=== PATIENT | male | born 1955 | race Caucasian/White ===

== ENCOUNTER → 2019-12-07 10:12 | Outpatient (BNVA) | payer BC, SELFPAY | PROVIDERS: Family Provider Nurse Practitioner; PCP Nurse Practitioner; Visit Provider Urology | DX: C67.0 Malignant neoplasm of trigone of bladder (principal) | CPT/HCPCS: 81001 ==

== ENCOUNTER → 2020-03-07 00:01 | Outpatient (BNVA) | payer BC, SELFPAY | PROVIDERS: Family Provider Nurse Practitioner; PCP Nurse Practitioner; Visit Provider Urology | DX: C67.9 Malignant neoplasm of bladder, unspecified (principal); R31.0 Gross hematuria; C67.0 Malignant neoplasm of trigone of bladder | CPT/HCPCS: 81001; 88112 ==

== ENCOUNTER → 2020-06-27 08:22 | Outpatient (BNVA) | payer BC, SELFPAY | PROVIDERS: Family Provider Nurse Practitioner; PCP Nurse Practitioner; Visit Provider Urology | DX: C67.0 Malignant neoplasm of trigone of bladder (principal) | CPT/HCPCS: 81001 ==

== ENCOUNTER → 2020-08-04 10:54 | Outpatient (BNVA) | payer BC, SELFPAY | PROVIDERS: Family Provider Nurse Practitioner; PCP Nurse Practitioner; Visit Provider Urology | DX: C67.0 Malignant neoplasm of trigone of bladder (principal) | CPT/HCPCS: 81001 ==

== ENCOUNTER → 2020-08-12 10:00 | Outpatient (BNVA) | payer BC, SELFPAY | PROVIDERS: PCP Nurse Practitioner; Visit Provider Urology | DX: Z11.59 Encounter for screening for other viral diseases (principal); C67.0 Malignant neoplasm of trigone of bladder | CPT/HCPCS: 87635 ==

== ENCOUNTER 2020-08-15 10:24 | Day surgery (SDC) | payer BC, SELFPAY ==
[2020-08-12 11:36] VITALS: BMI 23.6
--- NOTE | 2020-08-12 11:47 | ECG_ITS ---
[facility] Test Date: 2020-08-12 Pat Name: Christopher Smith Department: Room: Gender: Male Construction Superintendent: : 1955 Requested By: Ilene Rojas Order Number: [id number] Alicia MD: Amie Sarkar M.D. Measurements Intervals [place] Rate: 59 P: 70 MD: 144 QRS: 46 QRSD: 100 T: 65 QT: 398 QTc: 396 Interpretive Statements SINUS BRADYCARDIA NONSPECIFIC T-WAVE ABNORMALITY Compared to ECG 09/30/2019 12:43:41 T-wave abnormality now present Electronically Signed On 08-12-2020 20:40:14 CDT by Amie Sarkar M.D. [email or web address] marion general hospitalSustainable Energy & Agriculture Technology/store/[id number]
--- NOTE | 2020-08-12 12:05 | P.ANESASSM_ITS ---
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 Proposed Procedure: Operation Date: 08/15/20 12:00 Proposed Procedures p Cystoscopy 01815 C67.0(Not Applicable) - Tyler Dominguez MD s Transurethral Resection Bladder Tumor(Not Applicable) - Tyler Dominguez MD Familial anesthetic complications: None Social: Social History: No alcohol and No tobacco Exam: Pre-Anes Outpt Exam: alert, oriented x 3, clear to auscultation bilaterally and regular rate & rhythm Airway: Cervical ROM: WNL MP: 2 Dentition: False CV/HEM: CV/HEM: CAD (stent in heart on plavix), HTN and [place] (2016) Comments: slow HR Metabolic: Metabolic: Hyperlipidemia Anesthetic Plan: ASA status: 2 Anesthesia: General Risk of > 500 ml blood loss (7ml/kg in children): No PFSH Anesthesia PFSH: Medical History Arteriosclerosis Bradycardia Cancer of trigone of urinary bladder History of [place] (myocardial infarction) Hyperlipidemia LV dysfunction Surgical History History of heart artery stent History of transurethral destruction of bladder lesion Family History Mother , at age 81 Dementia Father , at age 69 Esophageal cancer Social History Smoking and tobacco status: former smoker Alcohol intake: never Marital status: Single Current occupational status: employed History of recent travel: No Data Anesthesia CBC & Chem 7: 08/12/20 11:56 08/12/20 11:56 Cardiac Studies: No Data to Display
[2020-08-12 12:08] LABS: Basophils # 0.1 10^3/uL (0.0-0.1); Basophils % 0.8 %; Eosinophils # 0.2 10^3/uL (0.0-0.8); Eosinophils % 2.6 %; Hematocrit 45.8 % (42.0-52.0); Hemoglobin 15.3 g/dL (11.7-16.6); Lymphocytes # 1.6 10^3/uL (0.8-4.8); Lymphocytes % 22.6 %; Mean Corpuscular HGB Conc 33.4 g/dL (30.0-36.0); Mean Corpuscular Volume 89.8 fL (80-94); Mean Platelet Volume 9.7 fL (7.4-10.4); Monocytes # 0.7 10^3/uL (0.2-0.9); Monocytes % 9.2 %; Neutrophils # 4.67 10^3/uL (1.8-7.7); Neutrophils % 64.5 %; Nucleated Red Blood Cells % 0 %; Platelet Count 195 10^3/cmm (130-400); Red Cell Distribution Width 12.1 % (12.1-15.1); White Blood Count 7.3 10^3/uL (4.0-10.0)
[2020-08-12 12:26] LABS: Anion Gap 12.7 (5-19); Blood Urea Nitrogen 8 mg/dL (8-23); Calcium 9.5 mg/dL (8.5-10.5); Carbon Dioxide 28 mmol/L (22-29); Chloride 102 mmol/L (98-107); Glomerular Filtration Rate 113.9 mL/min (90-130); Glucose 116 mg/dL (65-115); Osmolality Calculated 287 mOsm/kg (285-295); Potassium 3.7 mmol/L (3.5-5.1); Sodium 139 mmol/L (136-145)
[2020-08-15] VITALS (7 sets, daily range): BP systolic 138–177; BP diastolic 80–99; PULSE 51–64; RESP 14–18; TEMP 36.3–36.6; O2SAT 97–100
[2020-08-15] MEDS: sodium chloride 0.9% 1,000 ML 30 ML IV (11:00)
[2020-08-15] MEDS: levofloxacin-dextrose 5 % 500 MG/100 ML PREMIX 100 MG IV (12:07)
--- NOTE | 2020-08-15 12:08 | P.HPUD_ITS ---
Surgery/Procedure H&P Update DATE OF PROCEDURE: August 15, 2020 DATE H&P PERFORMED: 08/04/20 H&P UPDATE INFORMATION: I have reviewed H&P completed within last 30 days, I have examined patient prior to procedure, No changes to prior documentation and H&P is in [facility] EMR on date indicated CHANGES TO PREVIOUS DOCUMENTATION: Doing well. Reviewed again with the patient. He is ready to proceed. 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
[2020-08-15] MEDS: lidocaine 2% Urojet 20 mL TOPICAL (12:28)
--- NOTE | 2020-08-15 12:55 | PM.OP ---
Operative Report Date of procedure: August 15, 2020 Pre-op Diagnosis: Suspicious bladder mucosa in patient with TCCA Post-op diagnosis: same Procedure Done: 1. Cystoscopy, transurethral resection/biopsy/fulguration suspicious bladder mucosa (>2.5 cm) Implants: Campbell catheter Pathology: 4 separate areas sampled and sent labeled appropriately Surgeon: Alberto Anesthesia: General Estimated blood loss: Less than 10 cc Urine output: Not measured Complications: None Findings: Clinic cystoscopy findings confirmed. 4 separate areas sampled. 1. Dome 2. Right lateral wall 3. Right anterolateral wall 4. Trigone Condition: stable Disposition: PACU Brief History: Christopher is a very pleasant 65-year-old white male with a history of TCC of the bladder. Recent surveillance cystoscopy showed areas of suspicion in the bladder for possible CIS. Cytology showed malignant appearing cells and he was scheduled for biopsy/fulguration. He delayed the procedure due to some family requirements. Procedure: After routine preoperative evaluation examination and obtaining of informed consent he was taken to the operating suite on 08/15/2020 where general anesthesia was administered without difficulty after appropriate timeout was performed, SCDs confirmed to be functioning, preoperative antibiotics administered, beta-eve protocol confirmed. Prepped and draped in the usual sterile fashion in dorsolithotomy position pain careful attention to avoiding pressure points. 21 Northern Irish cystoscope with 30 degree lens was introduced into urethral meatus and advanced into the bladder under videoscopy. The bladder was examined with 30 and 70 degrees lenses. The areas seen in the clinic that were suspicious were confirmed. The above 4 areas were sampled with cold cup biopsy forceps and then the suspicious mucosa fulgurated completely with the largest being about 2.5 to 3 cm in size. Samples were sent appropriately labeled. Base was fulgurated with Bugbee cautery probe for complete hemostasis. Bladder was drained with an 18 Northern Irish Campbell catheter. Urine was clear. Tolerated procedure well without complications. PLANS: 1. Follow-up on Saturday for voiding trial 2. Call for concerns or questions. Encouraged restricted activity and large fluid intake to reduce the risk of bleeding and clot formation.
--- NOTE | 2020-08-15 13:27 | PC.NURSE ---
patient arrived on unit.
--- NOTE | 2020-08-15 14:04 | PC.NURSE ---
patient taken back to OR for discharge
--- NOTE | 2020-08-15 15:36 | ANE.PACU2 ---
Inpatient post-anesthesia follow up: Airway intact: Yes Vital signs: Temperature 97.8 F Pulse Rate 51 Respiratory Rate 18 Blood Pressure 177/93 Pulse Oximetry 97 Oxygen Delivery Me thod Room Air Oxygen Flow Rate 8 Fraction of Inspir ed Oxygen Hydration adequate: Yes Nausea and vomiting: No Pain level: 1
== END 2020-08-15 14:55 | disposition home or self-care (01) ==
PROVIDERS: Anesthesiology; PCP Nurse Practitioner; Visit Provider Urology
PROC: 0TJB8ZZ Inspection of Bladder, Via Natural or Artificial Opening Endoscopic (ICD-10-PCS; CPT 52000; principal; 2020-08-15 12:00)
PROC: 0TBB8ZZ Excision of Bladder, Via Natural or Artificial Opening Endoscopic (ICD-10-PCS; CPT 52240; 2020-08-15 12:00)
DX: C67.0 Malignant neoplasm of trigone of bladder (principal); I25.10 Atherosclerotic heart disease of native coronary artery without angina pectoris; Z95.5 Presence of coronary angioplasty implant and graft; E78.5 Hyperlipidemia, unspecified; I10 Essential (primary) hypertension; I25.2 Old myocardial infarction; Z87.891 Personal history of nicotine dependence
CPT/HCPCS: 52240; 12345; 36415; 80048; 85025; 88305; 93005; 96365; J1956; J2405; J2704; J2710; J3010; J3490; J7030

== ENCOUNTER 2020-09-13 20:24 | Emergency (ER) | payer BC, SELFPAY ==
--- NOTE | 2020-09-13 20:26 | XRR_ITS ---
PROCEDURE INFORMATION: Exam: XR Chest, 1 View Exam date and time: 09/13/2020 9:17 PM Age: 65 years old Clinical indication: Chest pain; On breathing; Prior surgery; Surgery type: Stents; Additional info: SOB TECHNIQUE: Imaging protocol: XR of the chest Views: 1 view. COMPARISON: CR Chest 1 [place] [id number] 03/28/2016 8:30 PM FINDINGS: Lungs: Patchy bilateral mid to lower lung field airspace opacities suggestive of an infectious process. Pleural space: Unremarkable. No pleural effusion. No pneumothorax. Heart/Mediastinum: Unremarkable. No cardiomegaly. Bones/joints: Unremarkable. XR/XR chest 1V portable [id number] IMPRESSION: Patchy bilateral mid to lower lung field airspace opacities suggestive of an infectious process.
--- NOTE | 2020-09-13 20:26 | ECG_ITS ---
[facility] Test Date: 2020-09-13 Pat Name: Christopher Smith Department: Room: Gender: Male Geographic Information System Analyst: : 1955 Requested By: Kalyn Arrington Order Number: [id number] Alicia MD: Neetu Hunter M.D. Measurements Intervals [place] Rate: 80 P: 59 AR: 144 QRS: 9 QRSD: 102 T: 56 QT: 383 QTc: 444 Interpretive Statements SINUS RHYTHM Compared to ECG 08/12/2020 12:02:20 Sinus bradycardia no longer present T-wave abnormality no longer present Electronically Signed On 09-14-2020 19:23:51 BRIM STITCHER by Neetu Hunetr M.D. [id number] f
[2020-09-13 20:34] VITALS: BP 115/73; PULSE 93; RESP 20; TEMP 36.9; O2SAT 95; BMI 23.3
[2020-09-13 20:45] VITALS: BP 122/82; PULSE 86; RESP 18; O2SAT 93
--- NOTE | 2020-09-13 20:48 | ED_ITS ---
HPI - URI/Sore Throat General: Chief Complaint: Upper Respiratory Infection Stated Complaint: Fever, Cough,nausea, ribs hurting Time Seen by Provider: 09/13/20 20:43 History of Present Illness: HPI Narrative: Patient complains of fever chills cough nonproductive over the last few days thinks he might have pneumonia as some pain down her left chest when he takes in a deep breath. Does have some sinus pain does have a lot of drainage also. MD elicited complaint: fever, cough, sore throat, nasal congestion and sinus pain Pertinent past history: other Onset (ago): day(s) Consistency: constant and progressively worsening Severity: moderate Description of mucous: yellow Able to tolerate fluids by mouth: Yes Exacerbating factors: nothing Relieving factors: nothing Associated symptoms: Reports chills, congestion, cough, nasal congestion, sinus pain and sore throat; Deny abdominal pain, chest pain, headache(s), nausea or vomiting Treatments prior to arrival: ibuprofen Review of Systems Const: Reports: chills Eyes: Denies: change in vision or blurry vision ENMT: Reports: nasal congestion and sinus pain Card: Denies: chest pain or dyspnea on exertion Resp: Reports: non-productive cough and other (Chest pain with deep inspiration of left lower quadrant); Denies: dyspnea or productive cough GI: Denies: abdominal pain, nausea or vomiting : Denies: difficulty urinating Musc: Denies: extremity pain Skin/Breast: Denies: rash Neuro: Denies: headache(s) Psych: Denies: anxiety or depression Huey/Lymph: Denies: easy bruising PFSH ED PFSH: Medical History (Updated 09/13/20 @ 22:48 by PHYLLIS Hamm) Arteriosclerosis Bradycardia Cancer of trigone of urinary bladder History of [place] (myocardial infarction) Hyperlipidemia LV dysfunction Surgical History History of heart artery stent History of transurethral destruction of bladder lesion Family History Mother , at age 81 Dementia Father , at age 69 Esophageal cancer Social History Smoking and tobacco status: former smoker Alcohol intake: never Marital status: Single Current occupational status: employed History of recent travel: No Physical Exam Const: COMMON NORMALS: no acute distress, average body habitus and patient oriented x3 HENMT: COMMON NORMALS: normocephalic HEAD & SCALP: normal to inspection and normocephalic FACE & SINUS: sinus tenderness frontal and ethmoid Eye: COMMON NORMALS: conjunctivae normal GENERAL EYE: appearance normal, both eyes and all related structures CONJUNCTIVA: Yes conjunctivae normal Neck/C-Spine: COMMON NORMALS: no JVD Chest: COMMONS NORMALS: normal inspection of the chest Resp: COMMON NORMALS: normal respiratory effort and clear to auscultation bilaterally AUSCULTATION: clear to auscultation bilaterally Cardio: COMMON NORMALS: no JVD, regular rate and regular rhythm RATE: regular rate RHYTHM: regular rhythm GI: COMMON NORMALS: Normal to inspection, nondistended, normoactive bowel sounds present Extremity: COMMON NORMALS: normal to inspection and full ROM Neuro: COMMON NORMALS: patient oriented x3 Course Vital Signs: Vital signs: Vital Signs Temperature 98.4 F 09/13/20 20:34 Pulse Rate 67 09/13/20 23:13 Respiratory Rate 18 09/13/20 20:45 Blood Pressure 118/62 09/13/20 23:13 Pulse Oximetry 94 09/13/20 23:13 MDM - URI/Sore Throat MDM Narrative: Medical decision making narrative: Discussed case with Dr. Arrington Lab Data: Labs: Lab Results 09/13/20 09/13/20 09/13/20 Range/Units 20:33 21:35 21:35 WBC 5.9 (4.0-10.0) 10^3/ uL RBC 4.46 (4.1-5.3) 10^6/u L Hgb 13.4 (11.7-16.6) g/dL Hct 39.6 L (42.0-52.0) % MCV 88.8 (80-94) fL MCH 30.0 (28.0-34.0) pg MCHC 33.8 (30.0-36.0) g/dL RDW 11.6 L (12.1-15.1) % Plt Count 239 (130-400) 10^3/c mm MPV 11.0 H (7.4-10.4) fL Neut % (Auto) 72.5 % Lymph % (Auto) 15.8 % [place] % (Auto) 8.8 % Eos % (Auto) 1.9 % Baso % (Auto) 0.3 % Neut # (Auto) 4.27 (1.8-7.7) 10^3/u L Lymph # (Auto) 0.9 (0.8-4.8) 10^3/u L [place] # (Auto) 0.5 (0.2-0.9) 10^3/u L Eos # (Auto) 0.1 (0.0-0.8) 10^3/u L Baso # (Auto) 0.0 (0.0-0.1) 10^3/u L Nucleated RBC % (a uto) 0 % Nucleated RBCs # 0.0 /100WBC Sodium 136 (136-145) mmol/L Potassium 3.7 (3.5-5.1) mmol/L Chloride 101 (98-107) mmol/L Carbon Dioxide 27 (22-29) mmol/L Anion Gap 11.7 (5-19) BUN 10 (8-23) mg/dL Creatinine 0.8 (0.7-1.2) mg/dL GFR Calculation 97.6 (90-130) mL/min Glucose 105 (65-115) mg/dL Calculated Osmolal ity 281 L (285-295) mOsm/k g Lactate (0.5-2.2) mmol/L Calcium 8.5 (8.5-10.5) mg/dL Total Bilirubin 0.8 (0.15-1.2) mg/dL AST 27 (0-40) U/L ALT 31 (0-41) U/L Alkaline Phosphata se 74 (40-130) IU/L Total Protein 6.5 L (6.6-8.7) g/dL Albumin 3.3 L (3.5-5.2) g/dL Globulin 3.2 (1.3-4.6) g/dL SARS-CoV-2 Ag (Rap id) Negative (Negative) 09/13/20 Range/Units 21:35 WBC (4.0-10.0) 10^3/ uL RBC (4.1-5.3) 10^6/u L Hgb (11.7-16.6) g/dL Hct (42.0-52.0) % MCV (80-94) fL MCH (28.0-34.0) pg MCHC (30.0-36.0) g/dL RDW (12.1-15.1) % Plt Count (130-400) 10^3/c mm MPV (7.4-10.4) fL Neut % (Auto) % Lymph % (Auto) % [place] % (Auto) % Eos % (Auto) % Baso % (Auto) % Neut # (Auto) (1.8-7.7) 10^3/u L Lymph # (Auto) (0.8-4.8) 10^3/u L [place] # (Auto) (0.2-0.9) 10^3/u L Eos # (Auto) (0.0-0.8) 10^3/u L Baso # (Auto) (0.0-0.1) 10^3/u L Nucleated RBC % (a uto) % Nucleated RBCs # /100WBC Sodium (136-145) mmol/L Potassium (3.5-5.1) mmol/L Chloride (98-107) mmol/L Carbon Dioxide (22-29) mmol/L Anion Gap (5-19) BUN (8-23) mg/dL Creatinine (0.7-1.2) mg/dL GFR Calculation (90-130) mL/min Glucose (65-115) mg/dL Calculated Osmolal ity (285-295) mOsm/k g Lactate 0.9 (0.5-2.2) mmol/L Calcium (8.5-10.5) mg/dL Total Bilirubin (0.15-1.2) mg/dL AST (0-40) U/L ALT (0-41) U/L Alkaline Phosphata se (40-130) IU/L Total Protein (6.6-8.7) g/dL Albumin (3.5-5.2) g/dL Globulin (1.3-4.6) g/dL SARS-CoV-2 Ag (Rap id) (Negative) EKG Data^: EKG 1: EKG interpretation date: 09/13/20 EKG interpretation time: 20:58 Computer Generated Interpretation: Sinus rhythm normal EKG 80 bpm ventricular rate KS interval of 144 ms QRS durations 102 ms QT is 383 ms Discharge Plan Discharge Patient Disposition: Home Clinical Impression: Lung infection Condition: Stable Prescriptions: New Ventolin HFA 90 mcg/actuation HFA aerosol inhaler 3 inh INHALATION Q4H PRN (Reason: shortness of breath or wheezing) Qty: 8.5 RF: 0 dexamethasone 6 mg tablet 6 mg PO DAILY Qty: 7 RF: 0 Zithromax Z-Sarmad 250 mg tablet See Rx Instructions .ROUTE .COMPLEX Qty: 6 RF: 0 No Action aspirin [Adult Aspirin Regimen] 81 mg tablet,delayed release (DR/EC) 81 mg PO QDAY RF: 0 Hold Instructions: Resume on 08/17/20. nitroglycerin 0.4 mg tablet, sublingual 0.4 mg SUBLINGUAL Q5M PRN (Reason: Chest Pain) RF: 0 simvastatin 40 mg tablet 40 mg PO QDAY Qty: 90 RF: 3 lisinopril 2.5 mg tablet 2.5 mg PO QDAY Qty: 90 RF: 3 clopidogrel 75 mg tablet 75 mg PO QDAY Qty: 90 RF: 3 Hold Instructions: Resume on 08/18/20. tamsulosin 0.4 mg capsule 0.4 mg PO QDAY Qty: 30 RF: 6 Discharge Orders: Discharge Order (Routine); Ordered 09/13/20 Ordered By: Christian Coelho Referrals: Mckenzie Dennis FNP [Primary Care Provider] - Discharge Diet: Usual diet Discharge Activity: Resume usual activity Patient Instructions: Pneumonia (ED) Activity Restrictions/Additional Instructions: Follow-up with medical provider as directed. Take medications as prescribed. Return to the ER or your medical provider if condition worsens. Please read and understand discharge instructions. If any questions ask please. Coding Level of Care Code ED Temperature Logging Operator for Cassie Fwd Exam Comprehensive
[2020-09-13 22:21] LABS: Basophils % 0.3 %; Eosinophils # 0.1 10^3/uL (0.0-0.8); Eosinophils % 1.9 %; Hematocrit 39.6 % (42.0-52.0); Hemoglobin 13.4 g/dL (11.7-16.6); Lymphocytes # 0.9 10^3/uL (0.8-4.8); Lymphocytes % 15.8 %; Mean Corpuscular HGB Conc 33.8 g/dL (30.0-36.0); Mean Corpuscular Volume 88.8 fL (80-94); Monocytes # 0.5 10^3/uL (0.2-0.9); Monocytes % 8.8 %; Neutrophils # 4.27 10^3/uL (1.8-7.7); Neutrophils % 72.5 %; Nucleated Red Blood Cells % 0 %; Platelet Count 239 10^3/cmm (130-400); Red Blood Count 4.46 10^6/uL (4.1-5.3); Red Cell Distribution Width 11.6 % (12.1-15.1); White Blood Count 5.9 10^3/uL (4.0-10.0)
[2020-09-13 22:35] LABS: Alanine Aminotransferase 31 U/L (0-41); Albumin Level 3.3 g/dL (3.5-5.2); Alkaline Phosphatase 74 IU/L (40-130); Anion Gap 11.7 (5-19); Aspartate Amino Transferase 27 U/L (0-40); Blood Urea Nitrogen 10 mg/dL (8-23); Calcium 8.5 mg/dL (8.5-10.5); Carbon Dioxide 27 mmol/L (22-29); Chloride 101 mmol/L (98-107); Globulin 3.2 g/dL (1.3-4.6); Glomerular Filtration Rate 97.6 mL/min (90-130); Glucose 105 mg/dL (65-115); Lactate (Lactic Acid level) 0.9 mmol/L (0.5-2.2); Osmolality Calculated 281 mOsm/kg (285-295); Potassium 3.7 mmol/L (3.5-5.1); Sodium 136 mmol/L (136-145); Total Bilirubin 0.8 mg/dL (0.15-1.2); Total Protein 6.5 g/dL (6.6-8.7)
[2020-09-13 22:38] LABS: SARS Covid-2 Antigen Negative (Negative)
[2020-09-13 23:13] VITALS: BP 118/62; PULSE 67; O2SAT 94
[2020-09-13] MEDS: dexamethasone 4 mg Tablet 10 MG PO (23:15)
[2020-09-13] MEDS: azithromycin 250 mg Tablet 500 MG PO (23:15)
[2020-09-13 23:21] VITALS: BP 118/62; PULSE 75; O2SAT 94
[2020-09-13 23:25] VITALS: PULSE 75; RESP 18; O2SAT 95
[2020-09-13] MEDS: albuterol 8 gm MDI 2 PUFF INHALATION (23:25)
[2020-09-13 23:30] VITALS: PULSE 77
[2020-09-16 03:52] LABS: Quest SARS-CoV-2 RNA DETECTED (NOT DETECTED)
--- NOTE | 2020-09-16 09:55 | PC.NURSE ---
Pt contacted and and given the results of his covid test.
== END 2020-09-13 23:35 | disposition home or self-care (01) ==
PROVIDERS: Emergency Provider Nurse Practitioner Family; PCP Nurse Practitioner
DX: J18.9 Pneumonia, unspecified organism (principal); Z79.82 Long term (current) use of aspirin; Z79.02 Long term (current) use of antithrombotics/antiplatelets; I25.2 Old myocardial infarction; E78.5 Hyperlipidemia, unspecified; Z87.891 Personal history of nicotine dependence
CPT/HCPCS: 12345; 71045; 80053; 83605; 85025; 87426; 87635; 93005; 94640; 99283; J3535; J8540; Q0144

== ENCOUNTER → 2020-12-06 08:34 | Outpatient (BNVA) | payer BC, SELFPAY | PROVIDERS: PCP Nurse Practitioner; Visit Provider Urology | DX: C67.0 Malignant neoplasm of trigone of bladder (principal); R33.8 Other retention of urine | CPT/HCPCS: 81003 ==

== ENCOUNTER → 2021-03-08 09:18 | Outpatient (BNVA) | payer OTHER, SELFPAY | PROVIDERS: Visit Provider Urology | DX: C67.0 Malignant neoplasm of trigone of bladder (principal) | CPT/HCPCS: 81003; 88112 ==

== ENCOUNTER → 2021-06-07 09:09 | Outpatient (BNVA) | payer OTHER, SELFPAY | PROVIDERS: Visit Provider Urology | DX: C67.0 Malignant neoplasm of trigone of bladder (principal) | CPT/HCPCS: 81003; 88112 ==

== ENCOUNTER → 2021-09-06 09:06 | Outpatient (BNVA) | payer OTHER, SELFPAY | PROVIDERS: Visit Provider Urology | DX: C67.0 Malignant neoplasm of trigone of bladder (principal) | CPT/HCPCS: 81003 ==

== ENCOUNTER → 2022-01-02 09:13 | Outpatient (BNVA) | payer OTHER, SELFPAY | PROVIDERS: Visit Provider Urology | DX: C67.0 Malignant neoplasm of trigone of bladder (principal) | CPT/HCPCS: 81003 ==

== ENCOUNTER 2022-03-12 08:17 | Outpatient (CLI) | payer OTHER, SELFPAY ==
[2022-03-12 09:04] LABS: Basophils # 0.1 10^3/uL (0.0-0.1); Basophils % 1.2 %; Eosinophils # 0.2 10^3/uL (0.0-0.8); Eosinophils % 3.9 %; Hematocrit 46.4 % (42.0-52.0); Hemoglobin 15.6 g/dL (11.7-16.6); Lymphocytes # 1.4 10^3/uL (0.8-4.8); Lymphocytes % 26.4 %; Mean Corpuscular HGB Conc 33.6 g/dL (30.0-36.0); Mean Corpuscular Hemoglobin 29.5 pg (28.0-34.0); Mean Corpuscular Volume 87.9 fl (80-94); Mean Platelet Volume 9.9 fL (7.4-10.4); Monocytes # 0.5 10^3/uL (0.2-0.9); Monocytes % 10.1 %; Neutrophils # 2.99 10^3/uL (1.8-7.7); Nucleated Red Blood Cells % 0 %; Platelet Count 177 10^3/cmm (130-400); Red Blood Count 5.28 10^6/uL (4.1-5.3); Red Cell Distribution Width 12.5 % (12.1-15.1); White Blood Count 5.2 10^3/uL (4.0-10.0)
[2022-03-12 09:32] LABS: Alanine Aminotransferase 24 U/L (0-41); Alkaline Phosphatase 53 IU/L (40-130); Anion Gap 11.7 (5-19); Aspartate Amino Transferase 22 U/L (0-40); Blood Urea Nitrogen 10 mg/dL (8-23); Calcium 9.4 mg/dL (8.5-10.5); Carbon Dioxide 27 mmol/L (22-29); Chloride 103 mmol/L (98-107); Chol HDL Ratio 3.11 mg/dL (1.0-5.00); Cholesterol 143 mg/dL (0-200); Glucose 96 mg/dL (65-115); HDL Cholesterol 46 mg/dL (60-100); LDL Cholesterol Calculated 81 mg/dL (50-129); LDL Cholesterol Direct 74 mg/dL (0-100); LDL HDL Ratio 1.76 RATIO (0.00-3.22); Osmolality Calculated 283 mOsm/kg (285-295); Potassium 4.7 mmol/L (3.5-5.1); Sodium 137 mmol/L (136-145); Thyroid Stimulating Hormone 2.43 uIU/mL (0.27-4.20); Total Bilirubin 0.6 mg/dL (0.15-1.2); Triglycerides 78 mg/dL (0-150)
== END 2022-03-12 08:18 | disposition home or self-care (01) ==
LOC: LAB 08:19
PROVIDERS: Visit Provider Internal Medicine Cardiovascular Disease
DX: E78.5 Hyperlipidemia, unspecified (principal); I25.2 Old myocardial infarction; I51.9 Heart disease, unspecified; R00.1 Bradycardia, unspecified
CPT/HCPCS: 36415; 80053; 80061; 83721; 84443; 85025

== ENCOUNTER → 2022-05-03 09:17 | Outpatient (BNVA) | payer OTHER, SELFPAY | PROVIDERS: Visit Provider Urology | DX: C67.0 Malignant neoplasm of trigone of bladder (principal); N32.9 Bladder disorder, unspecified | CPT/HCPCS: 81003; 88112 ==

== ENCOUNTER 2022-11-28 12:52 | Observation (INO) | payer SELFPAY ==
--- NOTE | 2022-11-26 08:39 | ECG_ITS ---
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 Measurements Intervals [place] Rate: 45 P: 62 KS: 162 QRS: 14 QRSD: 109 T: 72 QT: 432 QTc: 374 Interpretive Statements SINUS BRADYCARDIA Compared to ECG 09/13/2020 20:55:16 Sinus rhythm no longer present Electronically Signed On 11-26-2022 9:58:28 GUIDE VISITOR by Vlad Aldrich M.D. [id number]
[2022-11-26 08:47] VITALS: BMI 23.6
[2022-11-26 09:42] LABS: Anion Gap 10.5 (5-19); Blood Urea Nitrogen 9 mg/dL (8-23); Calcium 9.6 mg/dL (8.5-10.5); Carbon Dioxide 28 mmol/L (22-29); Chloride 103 mmol/L (98-107); Glomerular Filtration Rate 113.2 mL/min (90-130); Glucose 100 mg/dL (65-115); Osmolality Calculated 283 mOsm/kg (285-295); Potassium 4.5 mmol/L (3.5-5.1); Sodium 137 mmol/L (136-145)
--- NOTE | 2022-11-26 15:05 | P.ANESASSM_ITS ---
Pre-Anesthetic Assessment Height/Weight: Height 1.78 m Weight 74.843 kg Preop Diagnosis: Recurrent bladder cancer Operation Date: 11/28/22 07:00 Proposed Procedures s cystoscopy transurethral resection bladder tumor 52683(Not Applicable) - Tyler Dominguez MD p cystoscopy transurethral resection bladder tumor 71556 H32.9(Not Applicable) - Tyler Dominguez MD Familial anesthetic complications: none Was Beta Colin taken within 24 hours: N/A Was Clonidine taken within 24 hours: N/A Social No alcohol and No tobacco Exam alert, oriented x 3 and clear to auscultation bilaterally Rafa (sinus rafa on EKG) Airway Submandibular: within normal limits Cervical ROM: within normal limits Mallampati: Class II Dentition: false Pulmonary Chronic Obstructive Pulmonary Disease CV/HEM Arrythmia, Coronary Artery Disease (stent) and Myocardial Infarction EF 40% in Metabolic Hyperlipidemia Anesthetic Plan ASA status: 3 Anesthesia: General Medications/Allergies Home Medications Medication Instructions Recorded Confirmed Last Taken Type aspirin 81 mg tablet,delayed 81 mg PO QDAY 12/07/19 11/26/22 11/22/22 History release (Adult Aspirin Regimen) nitroglycerin 0.4 mg sublingual 0.4 mg sublingual Q5M PRN Chest 12/07/19 11/26/22 Unknown History tablet Pain clopidogrel 75 mg tablet 75 mg PO QDAY #90 tabs 04/11/22 11/26/22 11/20/22 Rx lisinopril 2.5 mg tablet 1.25 mg PO DAILY #90 tabs 04/12/22 11/26/22 11/25/22 Rx simvastatin 40 mg tablet 40 mg PO QDAY #90 tabs 04/12/22 11/26/22 11/25/22 Rx tamsulosin 0.4 mg capsule See Rx Instructions .Route 10/08/22 11/26/22 11/25/22 Rx .COMPLEX #90 caps Allergies Allergy/AdvReac Type Severity Reaction Status Date / Time sulfamethoxazole Allergy Unknown Verified 10/30/22 08:16 [facility], [facility] Anesthesia Medical History Arteriosclerosis Bradycardia Cancer of trigone of urinary bladder History of cellulitis History of [place] (myocardial infarction) Hyperlipidemia LV dysfunction Surgical History History of heart artery stent History of transurethral destruction of bladder lesion Family History Mother , at age 81 Dementia Father , at age 69 Esophageal cancer Social History Smoking and tobacco status: former smoker Alcohol intake: never Marital status: Single Current occupational status: employed History of recent travel: No Data Anesthesia 11/26/22 09:00 BMP 11/26/22 09:00 Sodium 137 Potassium 4.5 Chloride 103 Carbon Dioxide 28 BUN 9 Creatinine 0.7 Glucose 100 Calcium 9.6 Cardiac Studies: No Data to Display
[2022-11-28] VITALS (34 sets, daily range): BP systolic 112–152; BP diastolic 67–95; PULSE 50–77; RESP 12–20; TEMP 36.2–36.7; O2SAT 93–99
[2022-11-28] MEDS: sodium chloride 0.9% 1,000 ML 30 ML IV (06:16)
--- NOTE | 2022-11-28 06:59 | P.HPUD_ITS ---
Surgery/Procedure H&P Update DATE OF PROCEDURE: November 28, 2022 DATE H&P PERFORMED: 10/30/22 H&P UPDATE INFORMATION: I have reviewed H&P completed within last 30 days, I have examined patient prior to procedure, No changes to prior documentation and H&P is in [facility] EMR on date indicated PREOP DIAGNOSIS: Recurrent bladder cancer PLANNED PROCEDURE: Operation Date: 11/28/22 07:00 Proposed Procedures s cystoscopy transurethral resection bladder tumor 28813(Not Applicable) - Tyler Dominguez MD p cystoscopy transurethral resection bladder tumor 06869 H32.9(Not Applicable) - Tyler Dominguez MD
--- NOTE | 2022-11-28 06:59 | W.PM.OPSUD ---
Surgery/Procedure H&P Update DATE OF PROCEDURE: November 28, 2022 DATE H&P PERFORMED: 10/30/22 H&P UPDATE INFORMATION: I have reviewed H&P completed within last 30 days, I have examined patient prior to procedure, No changes to prior documentation and H&P is in [facility] EMR on date indicated PREOP DIAGNOSIS: Recurrent bladder cancer PLANNED PROCEDURE: Operation Date: 11/28/22 07:00 Proposed Procedures s cystoscopy transurethral resection bladder tumor 05590(Not Applicable) - Tyler Dominguez MD p cystoscopy transurethral resection bladder tumor 54951 H32.9(Not Applicable) - Tyler Dominguez MD
[2022-11-28] MEDS: levofloxacin-dextrose 5 % 500 MG/100 ML PREMIX 100 MG IV (07:03)
--- NOTE | 2022-11-28 07:05 | P.OP_ITS ---
Operative Report Date of procedure: November 28, 2022 Pre-op diagnosis: Suspicious bladder mucosa and patient with history of bladder cancer Post-op diagnosis: Suspicious bladder mucosa and patient with history of bladder cancer Procedure done: 1. Cystoscopy, transurethral section bladder tumor medium Implants: None Specimens removed/disposition: Suspicious bladder mucosa Pathology: Suspicious bladder mucosa Surgeon: Alberto Estimated blood loss: <5 cc Urine output: Not measured Complications: None Findings: Anesthesia: General Condition: Stable Disposition: PACU Intraoperative findings: * Suspicious mucosa sampled and fulgurated. See body of the note. Brief History: Christopher is a very pleasant 67-year-old white male with a history of bladder cancer diagnosed in 2019, low-grade, noninvasive. Has had suspicious looking mucosa on multiple cystoscopies with atypical cytology. Repeat biopsy showed no evidence of residual or recurrent TCCA. More recent cystoscopy was again suspicious and it was recommended because it has been a while since he was resampled to proceed with resection for further delineation of risk. Procedure: After routine preoperative evaluation examination and obtaining of informed consent he was taken to the operating suite on 11/28/2022 where general anesthesia was administered without difficulty after appropriate timeout was performed, SCDs confirmed to be functioning, preoperative antibiotics administered, beta-eve protocol confirmed. Prepped and draped in usual sterile fashion in dorsolithotomy position paying careful attention to avoiding pressure points. 21 Liberian cystoscope with 30 degree lens was introduced into urethra meatus and advanced into the bladder without difficulty. The bladder was systematically examined with both 30 and 70 degree lenses. Clinic findings were confirmed. It was decided at this point to use the cold cup biopsy forcep and Bugbee probe for resection and fulguration. 5 distinct areas on the right lateral and anterior bladder wall were sampled. 1 clearly went into the muscle. The surrounding suspicious mucosa was fulgurated. 2 suspicious areas on the trigone were then sampled both well away from each orifice. The surrounding suspicious mucosa was fulgurated. Total area of resection and fulguration was about 3 cm in aggregate. On final inspection all areas were hemostatic. Orifice was were not involved in the resection. And samples were labeled appropriately and numbered based on specimen numbers. The bladder was drained with a 20 Liberian three-way Campbell catheter and the irrigation port was plugged He tolerated procedure well without complications and was awakened in the operating room and returned to the recovery room in stable condition. PLANS: 1. Admit to observation status 2. We will maintain Campbell catheter for few days post discharge to allow adequate healing of the deeper biopsy
--- NOTE | 2022-11-28 07:43 | P.ANESUD_ITS ---
Pre-Anesthetic Update Pre-Anesthetic Assessment: Date of Surgery/Procedure: 11/28/22 Preop Jaclyn gnosis: Recurrent bladder cancer Proposed Procedure: Operation Date: 11/28/22 07:00 Proposed Procedures s cystoscopy transurethral resection bladder tumor 23679(Not Applicable) - Tyler Dominguez MD p cystoscopy transurethral resection bladder tumor 04947 H32.9(Not Applicable) - Tyler Dominguez MD Any changes to Pre-Anesthetic Assessment?: No Last Intake: Intake Last Liquid Date 11/27/22 Last Liquid Time 22:00 Last Solid Date 11/27/22 Last Solid Time 22:00 Labs Last 48hrs: BMP 11/26/22 09:00 Sodium 137 Potassium 4.5 Chloride 103 Carbon Dioxide 28 BUN 9 Creatinine 0.7 Glucose 100 Calcium 9.6 Vitals: Temperature 97.7 F 11/28/22 05:55 Pulse Rate 57 L 11/28/22 05:55 Pulse Rhythm 11/28/22 06:08 Pulse Strength 3+ Normal 11/28/22 06:08 Respiratory Rate 16 11/28/22 05:55 Blood Pressure 137/77 11/28/22 05:55 Blood Pressure Georgina n 97 11/28/22 05:55 Pulse Oximetry 94 11/28/22 05:55 Oxygen Delivery Me thod 11/28/22 06:08 Exam: Pre-Anes Outpt Exam: alert, oriented x 3, clear to auscultation bilaterally and regular rate & rhythm Cardiac Studies: No Data to Display
[2022-11-28] MEDS: lidocaine 2% Urojet 20 mL TOPICAL (07:45)
[2022-11-28] MEDS: HYDROmorphone 1 mg/mL INJ 1 mL 0.5 MG IVP (09:02)
[2022-11-28] MEDS: HYDROcodone-acetaminophen 5-325 mg Tablet 1 TAB PO ×2 (09:20→17:04)
[2022-11-28] MEDS: tamsulosin 0.4 mg Capsule PO (09:20)
--- NOTE | 2022-11-28 09:58 | PC.NURSE ---
Dr Dominguez notified of pts strong urge to void and strain. Order received for oxybutynin. catheter draining well, urine clear.
[2022-11-28] MEDS: oxybutynin chloride XL 5 MG TABLET 10 MG PO (10:04)
--- NOTE | 2022-11-28 12:55 | PC.NURSE ---
Patient arrived to the floor at this time. Patient is A&Ox3. Respirations even and non-labored on room air. Patient denies any pain.
--- NOTE | 2022-11-28 13:00 | PC.NURSE ---
Patient was given a regular tray to eat for lunch by Phylicia GREASE WORKER nurse.
--- NOTE | 2022-11-28 13:51 | ANE.PACU2 ---
Inpatient post-anesthesia follow up: Airway intact: Yes Vital signs: Temperature 97.8 F Pulse Rate 59 Respiratory Rate 16 Blood Pressure 135/88 Pulse Oximetry 95 Oxygen Delivery Me thod Room Air Oxygen Flow Rate Fraction of Inspir ed Oxygen Hydration adequate: Yes Nausea and vomiting: No Pain level: 2 Mental status: Baseline
[2022-11-28] MEDS: docusate sodium 100 mg Capsule PO ×2 (14:22→20:22)
[2022-11-28] MEDS: lisinopril 2.5 mg Tablet 1.25 MG PO (14:22)
[2022-11-28] MEDS: lactated ringers 1,000 ML 50 ML IV (14:30)
[2022-11-29 04:37] VITALS: BP 122/65; PULSE 52; RESP 19; TEMP 36.6; O2SAT 95
[2022-11-29 08:12] VITALS: BP 118/67; PULSE 47; RESP 16; TEMP 36.6; O2SAT 95
[2022-11-29] MEDS: lisinopril 2.5 mg Tablet 1.25 MG PO (08:14)
[2022-11-29] MEDS: docusate sodium 100 mg Capsule PO (08:14)
[2022-11-29] MEDS: tamsulosin 0.4 mg Capsule PO (08:15)
[2022-11-29] MEDS: atorvastatin 40 mg Tablet 20 MG PO (08:22)
--- NOTE | 2022-11-29 08:40 | PM.DCS ---
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 Areas that have been suspicious were sampled and then fulgurated. Several deep specimens were taken. Campbell catheter was maintained throughout his hospitalization. Urine was clear on postop day #1 and he was discharged with catheter in place for further healing before removal. Perioperative limitations and restrictions's explicitly reviewed Health follow-up early next week for path check and voiding trial. Physical Exam Narrative: Alert oriented no acute distress No labored respiration. No audible wheezing Abdomen nontender Urine clear Good range of motion Baseline Urinary Catheter Management: 3-way Urethral CBI: Cath Placed During This Visit: yes Reason for Continuing Indwelling Catheter: Perioperative Use in Selected Surgeries Urinary Catheter Date of Insertion: 11/28/22 Urinary Catheter Time of Insertion: 07:45 Discharge Data Studies Completed and Pending Pending at discharge Category Date Time Status Pathology: Surgical [PTH] Routine Pth 11/28/22 08:04 Received Laboratory Results Sodium 137 mmol/L (136-145) 11/26/22 09:00 Potassium 4.5 mmol/L (3.5-5.1) 11/26/22 09:00 Chloride 103 mmol/L (98-107) 11/26/22 09:00 Carbon Dioxide 28 mmol/L (22-29) 11/26/22 09:00 Anion Gap 10.5 (5-19) 11/26/22 09:00 BUN 9 mg/dL (8-23) 11/26/22 09:00 Creatinine 0.7 mg/dL (0.7-1.2) 11/26/22 09:00 GFR Calculation 113.2 mL/min (90-130) 11/26/22 09:00 Glucose 100 mg/dL (65-115) 11/26/22 09:00 Calculated Osmolality 283 mOsm/kg (285-295) L 11/26/22 09:00 Calcium 9.6 mg/dL (8.5-10.5) 11/26/22 09:00 Vitals Last Vital Signs Temp 97.8 F 11/29/22 08:12 Pulse 47 L 11/29/22 08:12 Resp 16 11/29/22 08:12 BP 118/67 11/29/22 08:12 Pulse Ox 95 11/29/22 08:12 O2 Del Method 11/29/22 08:12 Discharge Plan Discharge Patient Disposition: Home Condition: Stable Prescriptions: Continued nitroglycerin 0.4 mg tablet, sublingual 0.4 mg SUBLINGUAL Q5M PRN (Reason: Chest Pain) simvastatin 40 mg tablet 40 mg PO QDAY Qty: 90 3RF lisinopril 2.5 mg tablet 1.25 mg PO DAILY Qty: 90 3RF tamsulosin 0.4 mg capsule See Rx Instructions .ROUTE .COMPLEX Qty: 90 3RF Dose Instruction: TAKE 1 CAPSULE BY MOUTH DAILY Rx Instructions: TAKE 1 CAPSULE BY MOUTH DAILY Held aspirin [Adult Aspirin Regimen] 81 mg tablet,delayed release (DR/EC) 81 mg PO QDAY Hold Instructions: Resume on 12/04/22. clopidogrel 75 mg tablet 75 mg PO QDAY Qty: 90 3RF Hold Instructions: Resume on 12/05/22. Discharge Orders: Discharge Order (Routine); Ordered 11/29/22 Ordered By: Tyler Dominguez Referrals: Tyler Dominguez MD [Physician] - 12/03/22 (Voiding trial Pathology check) Discharge Diet: Usual diet Discharge Activity: Limit activity as instructed Patient Instructions: Opioid Safety Activity Restrictions/Additional Instructions: 1. It is important to leave the catheter in for healing of the deeper biopsies. We will remove it on 12/03/2019 3 in the afternoon. 2. Is also important to avoid heavy lifting or straining. Really anything over 10 pounds would be too much. 3. You can use a leg bag overnight bag per your preference. 4. Avoid constipation. Do what ever it takes including stool softeners and laxatives to maintain normal bowel movements Discharge Attestations Time Spent in Discharge Care*: less than 30 min Quality Metrics Clinical Quality Measures [ No reported AMI, CVA or VTE this stay] Coding Level of Care Code Acute Chg FW DC note Diagnoses Lesion of bladder N32.9 Abnormal urine cytology R82.89
[2022-11-29 12:03] VITALS: BP 118/67; PULSE 50; RESP 16; TEMP 36.6; O2SAT 95
--- NOTE | 2022-11-29 12:04 | PC.NURSE ---
IV Removed intact. Patient tolerated well. Leg bag attached to patient's Campbell Catheter. Patient tolerated well. Overnight bag sent home with patent. Patient is A&Ox3. Respirations even and non-laborer cutting tool on room air. discharge instructions reviewed with patient including hos follow up appointment on 12/03/22 at 0730. Patient verbalized understanding of discharge appointment and that there are non changes to his medications. Patient ambulated to his private car.
== END 2022-11-29 12:08 | disposition home or self-care (01) ==
LOC: MEDSURG 12:52
PROVIDERS: Anesthesiology; Admitting Provider Urology; Visit Provider Urology
PROC: 0TBB8ZZ Excision of Bladder, Via Natural or Artificial Opening Endoscopic (ICD-10-PCS; CPT 52235; principal; 2022-11-28 07:00)
PROC: 0TJB8ZZ Inspection of Bladder, Via Natural or Artificial Opening Endoscopic (ICD-10-PCS; CPT 52000; 2022-11-28 07:00)
DX: N32.9 Bladder disorder, unspecified (principal); R82.89 Other abnormal findings on cytological and histological examination of urine; Z85.51 Personal history of malignant neoplasm of bladder; J44.9 Chronic obstructive pulmonary disease, unspecified; I25.10 Atherosclerotic heart disease of native coronary artery without angina pectoris; Z95.5 Presence of coronary angioplasty implant and graft; I25.2 Old myocardial infarction; E78.5 Hyperlipidemia, unspecified; Z79.82 Long term (current) use of aspirin; Z87.891 Personal history of nicotine dependence
CPT/HCPCS: 52235; 80048; 93005; G0378; J0131; J1100; J1170; J1956; J2370; J2405; J2704; J3010; J3490; J7030; J7120

== ENCOUNTER 2022-11-29 19:36 | Emergency (ER) | payer SELFPAY ==
[2022-11-29 19:41] VITALS: BP 160/84; PULSE 69; TEMP 36.6; O2SAT 92
--- NOTE | 2022-11-29 19:56 | W.ED.ABDPA2 ---
HPI - Abdominal Pain General: Chief Complaint: Abdominal Pain Stated Complaint: constipation Time Seen by Provider: 11/29/22 19:56 History of Present Illness: 67-year-old male patient comes in today for complaints of abdominal cramping. Patient states that he was recommended by his surgeon to avoid getting constipated so he had been taking some stool softener today and then took some tablets of bisacodyl to have a bowel movement. Patient states that he has not yet had a bowel movement but has had some significant cramping. Patient appears uncomfortable in mild pain. Patient denies not being able to urinate. Patient denies any blood in the stool. Patient appears nontoxic. Patient has a history of a lesion on the bladder, left ventricular dysfunction, hyperlipidemia, and SD. Patient denies any chest pain or shortness of breath. Associated Symptoms: Reports constipation; Denies vomiting Review of Systems GI: Reports: constipation; Denies: vomiting : Denies: difficulty urinating PFSH ED PFSH: Medical History Arteriosclerosis Bradycardia Cancer of trigone of urinary bladder History of cellulitis History of SD (myocardial infarction) Hyperlipidemia LV dysfunction Surgical History History of heart artery stent History of transurethral destruction of bladder lesion Family History Mother , at age 81 Dementia Father , at age 69 Esophageal cancer Social History Smoking and tobacco status: former smoker Alcohol intake: never Marital status: Single Current occupational status: employed History of recent travel: No Physical Exam Const: COMMON NORMALS: alert HENMT: COMMON NORMALS: normocephalic HEAD & SCALP: normocephalic MOUTH: Normal oral and palatal mucosa present THROAT: posterior oropharynx normal Neck/C-Spine: COMMON NORMALS: full ROM Resp: COMMON NORMALS: normal respiratory effort and clear to auscultation bilaterally AUSCULTATION: clear to auscultation bilaterally Cardio: COMMON NORMALS: regular rate and regular rhythm RATE: regular rate RHYTHM: regular rhythm GI: COMMON NORMALS: Soft to palpation AUSCULTATION: Yes Hyperactive bowel sounds present PALPATION: Yes Soft to palpation and No Tenderness to palpation present (GI) : COMMON NORMALS: Yes no CVA tenderness BLADDER/KIDNEY EXAM: Yes no CVA tenderness Back/Pelvis: COMMON NORMALS: no CVA tenderness Extremity: COMMON NORMALS: no pedal edema Neuro: SENSORIUM/ORIENTATION: Yes alert Skin: COMMON NORMALS: turgor normal GENERAL SKIN EXAM: turgor normal Course Vital Signs: Vital signs: Vital Signs Temperature 97.8 F 11/29/22 19:41 Pulse Rate 69 11/29/22 19:41 Blood Pressure 160/84 11/29/22 19:41 Pulse Oximetry 92 11/29/22 19:41 Oxygen Delivery Me thod 11/29/22 19:41 MDM - Abdominal Pain Medical Decision Making 67-year-old male patient comes in today for concerns of no bowel movement today. Patient reports a small bowel movement yesterday. Patient was concerned because he was told to make sure he did not get blocked up. Patient had a recent procedure for biopsy of the bladder. These were instructions postanesthesia. Patient denies any fever nausea vomiting. Patient reports taken some stool softeners and a laxative with no results today. On exam abdomen soft nontender to palpation. Bowel sounds are hyperactive. Skin is warm and dry. Vital signs are normal. Review of the record noted some normal labs done on the . Differential diagnosis includes bowel obstruction, constipation, anxiety about health. KUB noted some constipation but no signs of obstruction. Reviewed exam with patient recommended MiraLAX 17 g 3 times a day until good bowel movement. Recommend milk of magnesia otherwise for constipation. Patient was given 1 dose today. Patient reported understanding of care plan need for follow-up or return to the ER for worsening symptoms. Discharge Plan Discharge Patient Disposition: Home Clinical Impression: Constipation Qualifiers: Constipation type: unspecified constipation type Qualified Code(s): K59.00 - Constipation, unspecified Condition: Stable Prescriptions: New Miralax 17 gram/dose powder 17 g PO TIDWM PRN (Reason: constipation) Qty: 510 0RF No Action aspirin [Adult Aspirin Regimen] 81 mg tablet,delayed release (DR/EC) 81 mg PO QDAY Hold Instructions: Resume on 12/04/22. nitroglycerin 0.4 mg tablet, sublingual 0.4 mg SUBLINGUAL Q5M PRN (Reason: Chest Pain) clopidogrel 75 mg tablet 75 mg PO QDAY Qty: 90 3RF Hold Instructions: Resume on 12/05/22. simvastatin 40 mg tablet 40 mg PO QDAY Qty: 90 3RF lisinopril 2.5 mg tablet 1.25 mg PO DAILY Qty: 90 3RF tamsulosin 0.4 mg capsule See Rx Instructions .ROUTE .COMPLEX Qty: 90 3RF Dose Instruction: TAKE 1 CAPSULE BY MOUTH DAILY Rx Instructions: TAKE 1 CAPSULE BY MOUTH DAILY Discharge Orders: Discharge ED (Routine); Ordered 11/29/22 Ordered By: Kevin Paul Discharge Diet: Usual diet Discharge Activity: Increase activity as tolerated Patient Instructions: Constipation (ED) Activity Restrictions/Additional Instructions: Drink plenty of fluids. Use MiraLAX 17 g three a day until good results. Then continue MiraLAX 1-2 times a day to maintain good bowel movements. Is important to stay well-hydrated with plenty of fluids. Follow-up with primary care as needed. Return to ER for worsening symptoms such as increased pain, blood in vomit or stool, or fever greater than 100.4. Coding Level of Care Code ED Respiratory Therapy Assistant for Cassie Fwd Exam Comprehensive
--- NOTE | 2022-11-29 19:57 | XRR_ITS ---
PROCEDURE INFORMATION: Exam: XR Abdomen Exam date and time: 11/29/2022 8:24 PM Age: 67 years old Clinical indication: Constipation; Prior surgery; Surgery type: Bladder TECHNIQUE: Imaging protocol: Radiologic exam of the abdomen. Views: Frontal supine view of the abdomen. 1 View. COMPARISON: CT abdomen pelvis wo/w [id number] 09/22/2018 9:12 PM FINDINGS: Gastrointestinal tract: There is a large amount of feces throughout the colon suggesting constipation. Organs: No urinary tract calculi are demonstrated. Vasculature: There is some atherosclerotic calcification in the iliac vessels more on the right than on the left. Bones/joints: There is degenerative change in the lumbar spine. XR/XR KUB [id number] IMPRESSION: Findings suggesting constipation.
[2022-11-29] MEDS: magnesium hydroxide 30 mL UDC PO (20:47)
== END 2022-11-29 20:48 | disposition home or self-care (01) ==
PROVIDERS: Emergency Provider Nurse Practitioner Family
DX: K59.00 Constipation, unspecified (principal); Z79.82 Long term (current) use of aspirin; Z79.02 Long term (current) use of antithrombotics/antiplatelets; I25.2 Old myocardial infarction; E78.5 Hyperlipidemia, unspecified; Z87.891 Personal history of nicotine dependence
CPT/HCPCS: 74018; 99283

== ENCOUNTER → 2022-12-04 07:17 | Outpatient (BNVA) | payer SELFPAY | PROVIDERS: Visit Provider Urology | DX: C67.0 Malignant neoplasm of trigone of bladder (principal) | CPT/HCPCS: 99213 ==

== ENCOUNTER 2023-07-28 14:35 | Emergency (ER) | payer MEDICARE, SELFPAY ==
--- NOTE | 2023-07-28 14:39 | XRR_ITS ---
PROCEDURE INFORMATION: Exam: XR Right Ankle Exam date and time: 07/28/2023 3:22 PM Age: 68 years old Clinical indication: Injury or trauma; Fall; Blunt trauma; Ankle; Right TECHNIQUE: Imaging protocol: Radiologic exam of the right ankle. Views: 3 or more views. COMPARISON: No relevant prior studies available. FINDINGS: Bones/joints: Subtle possible mildly displaced fracture from the medial aspect of the talus suspected, CT could further evaluate this. Soft tissues: Mild soft tissue swelling about the ankle. Minimal degenerative soft tissue calcification about the ankle. XR/XR ankle RT min 3V* [id number] IMPRESSION: 1. Subtle possible mildly displaced fracture from the medial aspect of the talus suspected, CT could further evaluate this. 2. Mild soft tissue swelling about the ankle. 3. Minimal degenerative soft tissue calcification about the ankle.
[2023-07-28 14:44] VITALS: BP 157/76; PULSE 56; TEMP 36.7; O2SAT 96; BMI 23.6
--- NOTE | 2023-07-28 16:32 | W.ED.EXTPRO ---
HPI - Extremity Problem General: Chief complaint: Extremity Injury, Lower Stated complaint: right ankle injury, fall Time Seen by Provider: 07/28/23 14:38 History of Present Illness: 68-year-old male presents emergency room with right ankle pain for about 9 days. Reveals that he fell 9 days ago but noticed increased pain within the past few days and described the pain as throbbing sensation with severity of 7 out of 10 mostly on the medial aspect of his ankle. Increased pain with walking and weightbearing. Denies any numbness or tingling. No other injury. Review of Systems General: Reports: 10 or more systems reviewed and unremarkable except in HPI and below Musc: Reports: extremity pain and joint swelling; Denies: joint redness, joint warmth, joint stiffness or limited range of motion PFSH ED PFSH: Medical History Arteriosclerosis Bradycardia Cancer of trigone of urinary bladder History of cellulitis History of [place] (myocardial infarction) Hyperlipidemia LV dysfunction Surgical History History of heart artery stent History of transurethral destruction of bladder lesion Family History Mother , at age 81 Dementia Father , at age 69 Esophageal cancer Social History Smoking and tobacco status: former smoker Alcohol intake: never Substance/Drug Use: never Marital status: Single Current occupational status: employed Physical Exam Const: COMMON NORMALS: no acute distress Neck/C-Spine: COMMON NORMALS: no JVD Cardio: COMMON NORMALS: no JVD, regular rate, regular rhythm, S1 normal heart sound present, S2 normal heart sound present, No gallops present (Cardio), No clicks present (Cardio), No murmurs present (Cardio), No rub (Cardio) and Peripheral pulses 2+ throughout RATE: regular rate RHYTHM: regular rhythm HEART SOUNDS: S1 normal heart sound present and S2 normal heart sound present PERIPHERAL PULSES: Peripheral pulses 2+ throughout : COMMON NORMALS: Yes no CVA tenderness BLADDER/KIDNEY EXAM: Yes no CVA tenderness Back/Pelvis: COMMON NORMALS: no CVA tenderness, thoracic and lumbar spine normal to inspection, no thoracic nor lumbar tenderness, thoraco-lumbar ROM normal and straight leg raise negative bilaterally Extremity: OTHER: Tenderness on the medial aspect of the ankle. Mild swelling with some bruising. No obvious open wound or laceration. Range of motion. Some pain with range of motion. Skin: COMMON NORMALS: no rashes or lesions noted, no wounds, turgor normal, no jaundice, no petechiae and no mottling GENERAL SKIN EXAM: no rashes or lesions noted and turgor normal Course Vital Signs: Vital signs: Vital Signs Temperature 98.0 F 07/28/23 14:44 Pulse Rate 56 L 07/28/23 14:44 Blood Pressure 157/76 07/28/23 14:44 Pulse Oximetry 96 07/28/23 14:44 Oxygen Delivery Me thod Room Air 07/28/23 14:44 MDM - Extremity (Nontraumatic) Medical Decision Making Patient made comfortable emergency room. Patient had a x-ray done. I discussed x-ray findings with the patient. Patient will be given referral to see orthopedic surgeon. Ankle brace was applied. XR interpretation done by ED provider, pending radiology final review Discharge Plan Discharge Patient Disposition: Home Clinical Impression: Ankle pain, Ankle sprain Condition: Stable Prescriptions: New naproxen 500 mg tablet 500 mg PO DAILY PRN (Reason: pain) Qty: 30 0RF No Action aspirin [Adult Aspirin Regimen] 81 mg tablet,delayed release (DR/EC) 81 mg PO QDAY Hold Instructions: Resume on 12/04/22. nitroglycerin 0.4 mg tablet, sublingual 0.4 mg SUBLINGUAL Q5M PRN (Reason: Chest Pain) doxycycline hyclate 100 mg tablet 100 mg PO BID 7 Days Qty: 14 0RF tamsulosin 0.4 mg capsule See Rx Instructions .ROUTE .COMPLEX Qty: 90 3RF Dose Instruction: TAKE 1 CAPSULE BY MOUTH DAILY Rx Instructions: TAKE 1 CAPSULE BY MOUTH DAILY clopidogrel 75 mg tablet 75 mg PO QDAY Qty: 90 3RF Hold Instructions: Resume on 12/05/22. simvastatin 40 mg tablet 40 mg PO QDAY Qty: 90 3RF lisinopril 2.5 mg tablet 1.25 mg PO DAILY Qty: 45 3RF Miralax 17 gram/dose powder 17 g PO TIDWM PRN (Reason: constipation) Qty: 510 0RF Discharge Orders: Discharge ED (Routine); Ordered 07/28/23 Ordered By: Justo Perkins Discharge Diet: Advance as tolerated Discharge Activity: Resume usual activity Patient Instructions: Opioid Safety, Pain Management Coding Level of Care Code ED Ordnance Mechanic for Cassie Lawrence
[2023-07-28] MEDS: TRAMadol 50 mg Tablet PO (16:43)
== END 2023-07-28 16:45 | disposition home or self-care (01) ==
PROVIDERS: Emergency Provider Family Medicine
DX: S93.401A Sprain of unspecified ligament of right ankle, initial encounter (principal); Z79.82 Long term (current) use of aspirin; Z79.02 Long term (current) use of antithrombotics/antiplatelets; I25.2 Old myocardial infarction; E78.5 Hyperlipidemia, unspecified; Z87.891 Personal history of nicotine dependence; W19.XXXA Unspecified fall, initial encounter
CPT/HCPCS: 73610; 99283

== ENCOUNTER → 2023-08-13 13:59 | Outpatient (BNVA) | payer MEDICARE, SELFPAY | PROVIDERS: Visit Provider Internal Medicine Cardiovascular Disease | DX: I25.10 Atherosclerotic heart disease of native coronary artery without angina pectoris (principal); I51.9 Heart disease, unspecified; E78.5 Hyperlipidemia, unspecified; R00.1 Bradycardia, unspecified; Z87.891 Personal history of nicotine dependence; I25.2 Old myocardial infarction | CPT/HCPCS: 99214 ==

== ENCOUNTER → 2023-08-24 12:15 | Outpatient (BNVA) | payer MEDICARE, SELFPAY | PROVIDERS: Visit Provider Registered Nurse Neonatal Intensive Care | DX: R05.9 Cough, unspecified (principal); J10.1 Influenza due to other identified influenza virus with other respiratory manifestations | CPT/HCPCS: 87400; 87426 ==

== ENCOUNTER → 2024-03-11 13:27 | Outpatient (BNVA) | payer MEDICARE, SELFPAY | PROVIDERS: Visit Provider Internal Medicine | DX: R07.9 Chest pain, unspecified (principal); R00.1 Bradycardia, unspecified; I25.10 Atherosclerotic heart disease of native coronary artery without angina pectoris; I51.9 Heart disease, unspecified; E78.5 Hyperlipidemia, unspecified; Z01.818 Encounter for other preprocedural examination; Z87.891 Personal history of nicotine dependence; I45.9 Conduction disorder, unspecified | CPT/HCPCS: 93005; 99214 ==

== ENCOUNTER → 2024-06-23 11:34 | Outpatient (BNVA) | payer MEDICARE, SELFPAY | PROVIDERS: Visit Provider Internal Medicine | DX: I25.10 Atherosclerotic heart disease of native coronary artery without angina pectoris (principal); I51.9 Heart disease, unspecified; E78.5 Hyperlipidemia, unspecified; R00.1 Bradycardia, unspecified; Z87.891 Personal history of nicotine dependence | CPT/HCPCS: 99214 ==

== ENCOUNTER 2024-07-23 11:45 | Outpatient (CLI) | payer MEDICARE, SELFPAY ==
--- NOTE | 2024-07-23 11:45 | USCV_ITS ---
Luis Christopher Age: 69 Gender: M : 1955 Exam Date: 07/23/2024 12:09 Ordering Phys: Vlad Aldrich M.D ([email or web address]) Technologist: ALBERTO Exam Location: [facility] – [place] Indication: Chest Pain and SOB BP: / HR: 57 Rhythm: Sinus Technical Quality: Adequate MEASUREMENTS (Male / Female) Normal Values 2D ECHO LV Diastolic Diameter PLAX 5.2 cm 4.2 - 5.9 / 3.9 - 5.3 cm IVS Diastolic Thickness 1.5 cm 0.6 - 1.0 / 0.6 - 0.9 cm IVS Systolic Thickness 1.7 cm LVPW Diastolic Thickness 1.4 cm 0.6 - 1.0 / 0.6 - 0.9 cm LVPW Systolic Thickness 1.7 cm LVOT Diameter 2.0 cm LV Ejection Fraction 2D Teich 51.0 % LV Ejection Fraction MOD 4C 53.5 % LV Ejection Fraction MOD 2C 48.3 % LV Ejection Fraction 2C AL 47.0 % LA Diameter 3.6 cm RA Systolic Volume 4C AL 20.5 ml RA Systolic Volume 4C MOD 19.9 ml LA Sys Volume AL 34.0 cm cubed LA Sys Volume Index AL 17.3 cm cubed/m squared Aorta at Sinotubular Diameter 2.8 cm IVC Diameter 1.1 cm M-MODE LA Ao Ratio MM 1.4 AV Cusp Separation MM 1.6 cm DOPPLER AV Peak Velocity 121.0 cm/s LVOT Peak Velocity 83.0 cm/s AV Area Cont Eq vti 1.9 cm squared AV Area Cont Eq pk 2.2 cm squared MV Area PHT 2.8 cm squared Mitral E to A Ratio 1.1 TV Peak Velocity 84.7 cm/s TR Peak Velocity 101.0 cm/s TR Peak Gradient 4.1 mmHg TR Mean Velocity 71.0 cm/s TR Mean Gradient 2.3 mmHg TR Velocity Time Integral 27.5 cm TV Peak E Velocity 59.0 cm/s Right Atrial Pressure 3.0 mmHg Pulmonary Artery Systolic Pressu 7.1 mmHg FINDINGS Left Ventricle Mildly increased left ventricular cavity size. Mildly decreased left ventricular systolic function. Left ventricular ejection fraction is estimated at 45-50 %. There is global hypokinesis.mildly increased left ventricular filling pressure. Right Ventricle The right ventricle is normal in size and function. Right Atrium The right atrium is normal in size. Left Atrium The left atrium is normal in size. Mitral Valve Structurally normal mitral valve without significant stenosis or prolapse. There is no mitral regurgitation. Aortic Valve Structurally normal aortic valve without significant sclerosis or stenosis. There is no aortic regurgitation. Tricuspid Valve Structurally normal tricuspid valve without significant stenosis or regurgitation. Pulmonary artery systolic pressure is normal. Pulmonic Valve Structurally normal pulmonic valve without significant stenosis. There is no pulmonic regurgitation. Pericardium Normal pericardium without effusion. Aorta Normal ascending aorta dimension. IVC The inferior vena cava appears normal. CONCLUSIONS Mildly increased left ventricular cavity size. Mildly decreased left ventricular systolic function. Left ventricular ejection fraction is estimated at 50 %. There is global hypokinesis.mildly increased left ventricular filling pressure. There is no pericardial effusion. No significant valve abnormalities. Right atrial pressure is around 5 mm of mercury. Amie Sarkar MD (Electronically Signed) Final Date: 23 July 2024 21:32 S
== END 2024-07-23 11:46 | disposition home or self-care (01) ==
LOC: RAD 11:46
PROVIDERS: Visit Provider Internal Medicine
DX: R07.9 Chest pain, unspecified (principal); R06.02 Shortness of breath
CPT/HCPCS: 93306

== ENCOUNTER → 2024-08-10 09:30 | Outpatient (BNVA) | payer MEDICARE, SELFPAY | PROVIDERS: Visit Provider Internal Medicine | DX: I25.10 Atherosclerotic heart disease of native coronary artery without angina pectoris (principal); I51.9 Heart disease, unspecified; E78.5 Hyperlipidemia, unspecified; R00.1 Bradycardia, unspecified; Z87.891 Personal history of nicotine dependence | CPT/HCPCS: 99213 ==

== ENCOUNTER → 2025-01-05 15:42 | Outpatient (BNVA) | payer MEDICARE, SELFPAY | PROVIDERS: Visit Provider Internal Medicine | DX: I25.10 Atherosclerotic heart disease of native coronary artery without angina pectoris (principal); I51.9 Heart disease, unspecified; E78.5 Hyperlipidemia, unspecified; R00.1 Bradycardia, unspecified; Z87.891 Personal history of nicotine dependence; I25.2 Old myocardial infarction | CPT/HCPCS: 99213 ==

== ENCOUNTER → 2025-09-06 14:37 | Outpatient (BNVA) | payer MEDICARE, SELFPAY | PROVIDERS: Visit Provider Internal Medicine Cardiovascular Disease | DX: I25.10 Atherosclerotic heart disease of native coronary artery without angina pectoris (principal); I73.9 Peripheral vascular disease, unspecified; I10 Essential (primary) hypertension; I87.2 Venous insufficiency (chronic) (peripheral); Z87.891 Personal history of nicotine dependence | CPT/HCPCS: 99204; 99214 ==

== ENCOUNTER 2025-10-05 14:27 | Outpatient (CLI) | payer MEDICARE, SELFPAY ==
--- NOTE | 2025-10-05 16:30 | USR_ITS ---
PROCEDURE INFORMATION: Exam: US Duplex Bilateral Lower Extremity Arteries Exam date and time: 10/05/2025 2:43 PM Age: 70 years old Clinical indication: Condition or disease; Other: Claudication; Additional info: Pad, claudication TECHNIQUE: Imaging protocol: Real-time ultrasound scan of the arteries of the bilateral lower extremities with 2-D cole scale, color Doppler flow and spectral waveform analysis. Images documented and saved. COMPARISON: CR (LOW EXM, ) 07/28/2023 3:22 PM FINDINGS: Right common femoral artery: No occlusion or significant stenosis. Normal waveform. Right superficial femoral artery: Occlusion noted. Right popliteal artery: Monophasic waveform. Right calf/foot arteries: Monophasic waveforms. Left common femoral artery: Significant focal stenosis noted. Monophasic waveforms distal to the stenosis. Left superficial femoral artery: Monophasic Doppler waveforms. Segmental occlusion noted. Left popliteal artery: Monophasic waveform. Left calf/foot arteries: Monophasic Doppler waveforms noted. US/[place] [id number] IMPRESSION: 1. Bilateral SFA occlusion 2. 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
== END 2025-10-05 14:28 | disposition home or self-care (01) ==
LOC: RAD 14:28
PROVIDERS: PCP Nurse Practitioner; Visit Provider Internal Medicine Cardiovascular Disease
DX: I70.213 Atherosclerosis of native arteries of extremities with intermittent claudication, bilateral legs (principal); I77.1 Stricture of artery
CPT/HCPCS: 93925